=== PATIENT | male | born 1970 | race Caucasian/White ===

== ENCOUNTER 2017-06-22 12:46 | Outpatient (RCR) | payer OTHER | END 2017-06-23 | LOC: M PT 12:46 | DX: Z51.89 Encounter for other specified aftercare (principal); Z98.890 Other specified postprocedural states; M25.512 Pain in left shoulder | CPT/HCPCS: 97161 ==

== ENCOUNTER 2017-06-27 08:29 | Outpatient (RCR) | payer OTHER | END 2017-07-23 | LOC: M PT 08:29 | DX: Z51.89 Encounter for other specified aftercare (principal); M75.102 Unspecified rotator cuff tear or rupture of left shoulder, not specified as traumatic | CPT/HCPCS: 97010 ==

== ENCOUNTER 2017-08-28 07:57 | Outpatient (RCR) | payer OTHER | END 2017-09-22 | LOC: M PT 08-31 07:30 | DX: Z51.89 Encounter for other specified aftercare (principal); Z98.890 Other specified postprocedural states; M75.102 Unspecified rotator cuff tear or rupture of left shoulder, not specified as traumatic | CPT/HCPCS: 97010 ==

== ENCOUNTER 2017-09-24 07:34 | Outpatient (RCR) | payer BC, OTHER | END 2017-10-23 | LOC: M PT 07:34 | DX: Z51.89 Encounter for other specified aftercare (principal); M75.102 Unspecified rotator cuff tear or rupture of left shoulder, not specified as traumatic; Z98.890 Other specified postprocedural states ==

== ENCOUNTER → 2018-05-24 | Outpatient (CLI) | payer OTHER ==
[~2018-05-24] MED LIST: ADVI200C5 PO; DIETARY SUPPLEMENT PO
--- NOTE | 2018-05-24 15:31 | REP ---
Clinical: Chest pain and shortness of breath. Comparison: 04/15/2013. Technique: PA and lateral. Findings: The mediastinum and cardiac silhouette are normal. The lung cardoza are clear and without acute consolidation, effusion, or pneumothorax. The skeletal structures are intact and normal. Impression: 1. No acute cardiopulmonary process. Electronically Signed by Josh Fernandez MD 05/24/2018 03:22 P
== END ==
LOC: M WUC 15:09
PROVIDERS: ATTEND Internal Medicine
DX: R06.02 Shortness of breath (principal)

== ENCOUNTER → 2018-07-15 | Outpatient (CLI) | payer BC ==
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
== END ==
LOC: M PAIN 13:00
PROVIDERS: ATTEND Anesthesiology
DX: M51.16 Intervertebral disc disorders with radiculopathy, lumbar region (principal); M51.17 Intervertebral disc disorders with radiculopathy, lumbosacral region; G89.29 Other chronic pain; Z79.891 Long term (current) use of opiate analgesic; Z87.891 Personal history of nicotine dependence

== ENCOUNTER → 2019-07-28 | Outpatient (CLI) | payer BC ==
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
== END ==
LOC: M PAIN 14:15
PROVIDERS: ATTEND Anesthesiology
DX: M51.16 Intervertebral disc disorders with radiculopathy, lumbar region (principal); G89.29 Other chronic pain; M51.17 Intervertebral disc disorders with radiculopathy, lumbosacral region; Z79.899 Other long term (current) drug therapy; Z87.891 Personal history of nicotine dependence

== ENCOUNTER → 2019-07-30 | Outpatient (CLI) | payer BC ==
--- NOTE | 2019-07-30 10:51 | REP ---
MRI LUMBAR SPINE WITHOUT CONTRAST: HISTORY: Lumbago. Occasional pain in the right leg. Comparison MRI study is from April 18, 2013. TECHNIQUE: Sagittal and axial T1- and T2-weighted scans are acquired in the usual fashion with and without fat saturation. Sequences include spin echo, turbo spin echo, and STIR imaging sequences. FINDINGS: Lumbar vertebral body heights are preserved. There is some straightening. Alignment is normal. There is no evidence of spondylolysis or spondylolisthesis. Normal caliber aorta is seen. No extra spinal abnormality is observed. The tip of the conus medullaris is normal in position and appearance at L1. Axial and sagittal images taken at the L5-S1 demonstrate a fairly large right posterior and right foraminal disc protrusion which compresses the exiting S1 root and narrows the neural foramen. There is mild facet hypertrophy. The facet hypertrophy is unchanged but the disc protrusion is new compared to the prior study. At L4-5, there is degenerative narrowing and decreased disc space signal intensity. A small central focal disc protrusion is seen at L4-5 which is unchanged in appearance from the 2014 prior study. No foraminal narrowing or spinal stenosis is seen. There is minimal facet hypertrophy. At L3-4, there is no evidence of disc protrusion, foraminal narrowing, or central canal stenosis. The L2-3 and L1-2 disc levels remain unremarkable. There is degenerative disc disease at T11-12 with reactive marrow changes and Schmorl's nodes. These findings are unchanged. IMPRESSION: Stable central focal disc protrusion at L4-5. New moderate to large sized right posterior and right foraminal disc protrusion at L5-S1. Electronically Signed by Corona Haley MD 07/30/2019 03:19 P
== END ==
LOC: M RAD 09:03
PROVIDERS: ATTEND Anesthesiology
DX: M54.41 Lumbago with sciatica, right side (principal); M54.42 Lumbago with sciatica, left side; G89.29 Other chronic pain

== ENCOUNTER → 2019-08-02 | Outpatient (CLI) | payer BC | LOC: M LABSMTC 08:37 | PROVIDERS: ATTEND Family Medicine | DX: Z01.818 Encounter for other preprocedural examination (principal); Z11.59 Encounter for screening for other viral diseases ==

== ENCOUNTER → 2019-08-05 | Outpatient (CLI) | payer BC ==
[~2019-08-05] MED LIST changes: +ISOVUE-M 300 61% 15ML VIAL As Ordered ONE; +LIDOCAINE 1% SDV 30ML VIAL As Ordered ONE; +dexameTHASONE 10MG/1ML VIAL PRES.FREE (J1100 PER 1MG) As Ordered ONE; +diazePAM 5MG TABLET As Ordered ONE; +oxyCODONE 5MG TAB As Ordered ONE
--- NOTE | 2019-08-05 14:01 | REP ---
C-ARM VIEWS LOWER LUMBAR SPINE: CLINICAL HISTORY: Pain. Three C-arm views of the lower lumbar spine are performed during injection by Dr. Jones. A needle is seen at the L4-5 level and a small amount of contrast is injected. 15 seconds of fluoroscopy time is utilized. Electronically Signed by Vance Khalil MD 08/05/2019 03:37 P
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
== END ==
LOC: M PAIN 10:45
PROVIDERS: ATTEND Anesthesiology
DX: M51.16 Intervertebral disc disorders with radiculopathy, lumbar region (principal); Z87.891 Personal history of nicotine dependence; Z79.899 Other long term (current) drug therapy
CPT/HCPCS: 62323; J1100; Q9967

== ENCOUNTER → 2019-08-29 | Outpatient (CLI) | payer BC ==
[~2019-08-29] MED LIST changes: -ISOVUE-M 300 61% 15ML VIAL As Ordered ONE; -LIDOCAINE 1% SDV 30ML VIAL As Ordered ONE; -dexameTHASONE 10MG/1ML VIAL PRES.FREE (J1100 PER 1MG) As Ordered ONE; -diazePAM 5MG TABLET As Ordered ONE; -oxyCODONE 5MG TAB As Ordered ONE
== END ==
LOC: M PAIN 15:00
PROVIDERS: ATTEND Anesthesiology
DX: Z53.20 Procedure and treatment not carried out because of patient's decision for unspecified reasons (principal)

== ENCOUNTER → 2019-09-12 | Outpatient (CLI) | payer BC ==
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
== END ==
LOC: M PAIN 09:45
PROVIDERS: ATTEND Anesthesiology
DX: M51.17 Intervertebral disc disorders with radiculopathy, lumbosacral region (principal); M51.16 Intervertebral disc disorders with radiculopathy, lumbar region

== ENCOUNTER → 2019-09-30 | Outpatient (CLI) | payer BC | LOC: M LABSMTC 10:22 | PROVIDERS: ATTEND Anesthesiology | DX: Z01.818 Encounter for other preprocedural examination (principal); Z11.59 Encounter for screening for other viral diseases | CPT/HCPCS: C9803; U0003 ==

== ENCOUNTER → 2019-10-03 | Outpatient (CLI) | payer BC ==
[~2019-10-03] MED LIST changes: +ISOVUE-M 300 61% 15ML VIAL As Ordered ONE; +LIDOCAINE 1% SDV 30ML VIAL As Ordered ONE; +diazePAM 5 MG TAB As Ordered ONE; +methylPREDNISolone SUSP 40MG/ML 1ML VIAL (DEPO MEDROL) As Ordered ONE; +oxyCODONE 5MG TAB As Ordered ONE
--- NOTE | 2019-10-04 08:04 | REP ---
C-ARM VIEWS LUMBAR SPINE: Three C-arm views lumbar spine performed during epidural injection by Dr. Jones. Needle is seen at the L5 level, and a small amount of contrast is injected. 11 seconds fluoroscopy time utilized. Electronically Signed by Vance Khalil MD 10/05/2019 11:23 P
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
== END ==
LOC: M PAIN 11:30
PROVIDERS: ATTEND Anesthesiology
DX: M51.17 Intervertebral disc disorders with radiculopathy, lumbosacral region (principal)
CPT/HCPCS: 62323; J1030; Q9967

== ENCOUNTER 2021-07-24 17:25 | Emergency (ER) | payer BC, OTHER ==
[~2021-07-24] VITALS: Ht 177.8 cm; Wt 96.4 kg
[~2021-07-24 17:25] MED LIST changes: -ISOVUE-M 300 61% 15ML VIAL As Ordered ONE; -LIDOCAINE 1% SDV 30ML VIAL As Ordered ONE; -diazePAM 5 MG TAB As Ordered ONE; -methylPREDNISolone SUSP 40MG/ML 1ML VIAL (DEPO MEDROL) As Ordered ONE; -oxyCODONE 5MG TAB As Ordered ONE
[2021-07-24] MEDS ORDERED: AMPH1CAP14 (17:32)
[2021-07-24 19:35] VITALS: BP 131/70
== END 2021-07-24 19:36 | disposition home or self-care (01) ==
LOC: M ED 17:25
DX: S01.01XA Laceration without foreign body of scalp, initial encounter (principal); W08.XXXA Fall from other furniture, initial encounter; Y92.017 Garden or yard in single-family (private) house as the place of occurrence of the external cause; Y93.9 Activity, unspecified; Y99.9 Unspecified external cause status

== ENCOUNTER → 2022-01-25 | Outpatient (CLI) | payer OTHER ==
[~2022-01-25] MED LIST changes: +AMPH1CAP14
== END ==
LOC: M LABSMTC 10:12
PROVIDERS: ATTEND Anesthesiology
DX: Z01.812 Encounter for preprocedural laboratory examination (principal); Z11.52 Encounter for screening for COVID-19

== ENCOUNTER 2022-01-30 10:08 | Day surgery (SDC) | payer OTHER ==
[~2022-01-30] VITALS: Ht 177.8 cm; Wt 95.7 kg
[~2022-01-30 10:08] MED LIST changes: +NS 1,000 ML IV ONE
[2022-01-30] MEDS ORDERED: LIDOCAINE 2% 100MG/5ML SDV (FOR ANES.) As Ordered ONE (10:38)
[2022-01-30] MEDS ORDERED: propofoL 200 MG/20 ML VIAL As Ordered ONE (10:38)
[2022-01-30 12:46] VITALS: BP 119/71
== END 2022-01-30 13:01 | disposition home or self-care (01) ==
LOC: M OPP 10:08
PROVIDERS: ATTEND Internal Medicine Gastroenterology
DX: Z12.11 Encounter for screening for malignant neoplasm of colon (principal); D12.6 Benign neoplasm of colon, unspecified; K64.0 First degree hemorrhoids; K57.30 Diverticulosis of large intestine without perforation or abscess without bleeding; Z79.899 Other long term (current) drug therapy

== ENCOUNTER → 2022-02-26 | Outpatient (CLI) | payer OTHER ==
[~2022-02-26] MED LIST changes: -NS 1,000 ML IV ONE
== END ==
LOC: M LABSMTC 10:01
PROVIDERS: ATTEND Orthopaedic Surgery
DX: Z01.812 Encounter for preprocedural laboratory examination (principal); Z11.52 Encounter for screening for COVID-19

== ENCOUNTER → 2022-11-02 | Outpatient (REF) | payer OTHER | LOC: M LAB REF 17:40 | PROVIDERS: ATTEND Ophthalmology | DX: H11.441 Conjunctival cysts, right eye (principal) ==

== ENCOUNTER → 2024-10-22 | Outpatient (CLI) | payer OTHER ==
[~2024-10-22] MED LIST changes: -AMPH1CAP14; +AMPH1CAP14 PO; +THERTAB52 PO; +VITA100093 PO
== END ==
LOC: M PLAIMG 09:17
PROVIDERS: ATTEND Internal Medicine
DX: M54.50 Low back pain, unspecified (principal)